=== PATIENT | male | born 1980 | race Caucasian/White ===

== ENCOUNTER 2024-05-30 09:00 | Emergency (ER) | payer SELFPAY ==
[2024-05-30] MEDS: Proparacaine 0.5% Ophth Soln 15 ML Bottle EYEBOTH STA (10:17)
[2024-05-30] MEDS: CYCLOPENTOLATE 1% EYEBOTH ONE (10:18)
== END 2024-05-30 10:33 | disposition home or self-care (01) ==
LOC: JP.ED 09:00
DX: H16.133 Photokeratitis, bilateral (principal); F17.210 Nicotine dependence, cigarettes, uncomplicated
CPT/HCPCS: 99283; A9270

== ENCOUNTER 2025-04-27 12:27 | Emergency (ER) | payer OTHER | END 2025-04-27 12:55 | disposition left against medical advice (07) | LOC: JP.ED 12:27 | DX: R10.A3 Flank pain, bilateral (principal) | CPT/HCPCS: 99283 ==